=== PATIENT | female | born 2000 ===

== ENCOUNTER 2025-01-17 02:44 | Inpatient (IN) ==
[2025-01-17] MEDS ORDERED: LIDOCAINE 1% LOCAL 20 ML VIAL INFIL PRN (04:23)
[2025-01-17] MEDS ORDERED: ACETAMINOPHEN 325 MG TAB PO PRN (04:23)
[2025-01-17] MEDS ORDERED: CALCIUM CARBONATE 500 MG CHEWABLE TAB PO PRN (04:23)
--- NOTE | 2025-01-17 04:48 | History & Physical Report ---
Date of Service January 17, 2025 Assessment & Plan (1) Amniotic fluid leaking: Plan: SPROM at 36 4/7 weeks at 0100 GBS-negative epidural when requested will start pitocin for augmentation anticipate vaginal Admission and Anticipated Discharge Date Admission Date: January 17, 2025 History of Present Illness Primary Care Provider: NO PCP Patient is a 24 yo female EDC [birth year] who presents with SPROM at 36 4/7 weeks at 0100. no ctn yet. GBS is negative. pregnany otherwise uncomplicated. Allergies Allergy/AdvReac Type Severity Reaction Status Date / Time amoxicillin [From Augmentin] Allergy Intermediate Rash Verified 01/13/25 09:58 clavulanic acid Allergy Intermediate Rash Verified 01/13/25 09:58 [From Augmentin] Home Medications Medication Instructions Recorded Confirmed Type PNV no.[id number] PO 08/20/24 01/13/25 History [ Gummies] Patient History Medical History Anxiety Varicella vaccination Surgical History S/P wisdom tooth extraction S/P tonsillectomy Family History Grandmother (Paternal) Breast cancer Mother No problems noted. Father Hypertension Denies family history of Ovarian cancer Colorectal cancer Social History Smoking Status: Never smoker Second Hand Exposure: No; Do You Dip or Chew Tobacco: No; Tobacco Cessation Education Requested by Patient: No Hx Alcohol Use: No Hx Substance Use: No Preferred Language: Czech Absence Management Consultant Required: No Beliefs That Will Affect Care: None marital status: Single marital status details: Josette Carver (25) [phone] Current Living Situation: Significant Other Current Living Situation Comment: lives alone,dog current occupational status: employed current occupation: [employer] former Other Information That Helps Us Care for You: No Feels Safe at Home: Yes Safety Concerns: Feels Safe At This Time Assistive Devices: Contacts and Glasses Review of Systems All systems reviewed & are unremarkable except as noted in HPI & below Physical Exam Constitutional: WD/WN, vitals as above Psychiatric: A+Ox3, euthymic affect Genitourinary: OB Exam Abdomen: + vertex (confirmed by ultrasound) and + irregular contractions Manual OB Exam: + cervical dilation 1 cm, + cervical effacement 50%, + station -2 and + amniotic fluid clear (grossly ruptured) and nitrazine positive OB Exam Monitor Tracing: + external FHT monitor used, + external uterine monitor used, + category I and + normal FHT variability Results & Data Vital Signs (Past 12 Hours) Vital Signs Temp Pulse Resp BP 01/17/25 03:38 98.2 F 18 01/17/25 03:13 100 H 139/87 01/17/25 03:11 18 01/17/25 03:11 98.2 F 18 Code Status & VTE Plan VTE Prophylaxis Plan VTE Prophylaxis will be ordered: No Coding Level of Care Code 33211 INT INP/OBS CARE 1/40MIN Diagnoses Amniotic fluid leaking O42.90
[2025-01-17] MEDS: LACTATED RINGER'S 1,000 ML IV PRN (04:58)
[2025-01-17 04:59] LABS: Hematocrit (blood only) 37.6 % (37.0-47.0); Hemoglobin 12.8 g/dl (12.0-16.0); Mean Corpuscular Volume 88.3 fL (80.0-100.0); Mean Platelet Volume 11.6 fL (9.4-12.4); Platelet Count 203 K/uL (130-400); RDW Coefficient of Variation 12.5 % (11.5-14.5); RDW Standard Deviation 39.8 fL (36.4-46.3); Red Blood Count 4.26 M/uL (4.20-5.40); White Blood Count 7.66 K/ul (4.8-10.8)
[2025-01-17] MEDS: OXYTOCIN 30 UNITS/NSS 30 UNITS/500 ML BAG IV PRN ×2 (05:05→22:13)
[2025-01-17] MEDS: BETAMETH SOD PHOS/ACETATE IA 6 MG/ML IM STA (05:49)
--- NOTE | 2025-01-17 15:24 | Anesthesiology Consultation ---
Date of Service January 17, 2025 Assessment & Plan Chart Review Chart Review: Acceptable Risk for Labor Epidural Consults Requested none ASA ASA2 Proposed Anesthesia Anesthesia Type: Labor Epidural Risk / Benefits Reviewed With: PT / POA / Parent / Guardian, Accepts Plan and Informed Consent Obtained History Height/Weight Height: 5 ft 1 in Weight: 68.946 kg Allergies Allergy/AdvReac Type Severity Reaction Status Date / Time amoxicillin [From Augmentin] Allergy Intermediate Rash Verified 01/13/25 09:58 clavulanic acid Allergy Intermediate Rash Verified 01/13/25 09:58 [From Augmentin] Medications Home Medications Medication Instructions Recorded Confirmed Last Taken PNV no.[id number] PO 08/20/24 01/13/25 Unknown [ Gummies] Active Medications Generic Name Dose Route Start Last Admin Trade Name Freq PRN Reason Stop Dose Admin Lactated Ringer's 1,000 mls @ 125 mls/hr 01/17/25 04:23 01/17/25 15:22 Lr IV 01/18/25 04:22 125 mls/hr .Q8H PRN Infusion L&D Protocol Protocol Oxytocin 30 units in 500 mls @ 11 mls/hr 01/17/25 04:23 01/17/25 13:05 Pitocin 30 Units/Nss IV 01/19/25 04:22 0.66 units/hr .Q24H PRN 11 mls/hr Labor Induction/Augmentation Titration Protocol 0.66 UNITS/HR NPO Date Last Intake of Fluids: 01/17/25 Time Last Intake of Fluids: 12:00 Date Last Intake of Solids: 01/17/25 Time Last Intake of Solids: 09:30 Past Medical History Medical History Anxiety Varicella vaccination Exercise / Class Metabolic Activity II 4-5 Yardwork/Stairs/Walk up hill Past Family History Family History Grandmother (Paternal) Breast cancer great GM Mother No problems noted. Father Hypertension Denies family history of Ovarian cancer Colorectal cancer Past Surgical History Surgical History S/P wisdom tooth extraction S/P tonsillectomy Past Anesthesia History No Hx of Anesthesia Complications and No Family Hx of Anesthesia Complications History of PONV No Hx of PONV and No Hx of Motion Sickness Social History Smoking Status: Never smoker Do You Dip or Chew Tobacco: No Hx Alcohol Use: No Hx Substance Use: No substance use type: does not use Physical Exam Vital Signs Last Vital Signs Temp 36.6 C 01/17/25 13:04 Pulse 90 01/17/25 14:12 Resp 18 01/17/25 15:00 BP 141/83 H 01/17/25 14:12 ENMT Mouth: no TMJ abnormality Thyromental Distance: > or= 3.5 Finger Breadths Mallampati Class: II Neck normal visual inspection and trachea midline; neck extension not limited Respiratory normal respiratory effort Auscultation: lungs clear to auscultation bilaterally Cardiovascular Rate/Rhythm: regular rate and regular rhythm Heart Sounds: no murmur Musculoskeletal Spine: normal cervical ROM Extremities: full ROM of extremities Neurologic moves all extremities Psychiatric Orientation: alert and oriented x 3 Testing Laboratory Results 01/17/25 04:39
[2025-01-17] MEDS: LIDOCAINE 2%/EPINEPHRINE 1:200,000 20 ML PF ONE (15:37)
[2025-01-17] MEDS: fentANYL 2 MCG/ML BUPIVacaine 0.125%-NSS 100ML BAG ONE (15:37)
[2025-01-17] MEDS: fentaNYL citrate PF 100 MCG/2 ML VIAL ONE (15:41)
[2025-01-17] MEDS: BUPIVACAINE 0.25% PF 30 ML VIAL ONE (15:42)
[2025-01-17] MEDS ORDERED: BUPIVACAINE 0.25% PF 30 ML VIAL EPI PRN (15:47)
[2025-01-17] MEDS ORDERED: LIDOCAINE 2% MPF LOCAL 5 ML VIAL EPI PRN (15:47)
[2025-01-17] MEDS ORDERED: NALOXONE HCL 1 MG in SODIUM CHLORIDE 0.9% 1,000 ML IV PRN (15:47)
[2025-01-17] MEDS ORDERED: ONDANSETRON INJ 2 MG/ML 2 ML VIAL IV PRN (15:47)
[2025-01-17] MEDS ORDERED: PROMETHAZINE 6.25 MG/50.25 ML BAG IV PRN (15:47)
[2025-01-17] MEDS ORDERED: diphenhydrAMINE 50 MG/ML VIAL IV PRN (15:47)
[2025-01-17] MEDS ORDERED: NALBUPHINE HCL INJ 10 MG/ML AMP IV PRN (15:47)
[2025-01-17] MEDS ORDERED: fentaNYL citrate PF 100 MCG/2 ML VIAL EPI PRN (15:47)
[2025-01-17] MEDS ORDERED: NALOXONE HCL 0.4 MG/1 ML VIAL/CARP IV PRN (15:47)
[2025-01-17] MEDS ORDERED: SODIUM CHLORIDE 0.9% PF INJ 10 ML VIAL EPI PRN (15:47)
[2025-01-17] MEDS ORDERED: ROPIVACAINE 0.5% PF 5 MG/ML 20 ML VIAL EPI PRN (15:47)
[2025-01-17] MEDS ORDERED: fentANYL 2 MCG/ML BUPIVacaine 0.125%-NSS 100ML BAG EPI PRN (15:47)
[2025-01-17] MEDS ORDERED: METOCLOPRAMIDE HCL 20 MG in SODIUM CHLORIDE 0.9% 50 ML IV PRN (15:47)
[2025-01-17] MEDS ORDERED: ePHEDrine sulfate 50 MG/ML AMP IV PRN (15:47)
[2025-01-17] MEDS: ePHEDrine sulfate 50 MG/ML AMP ONE (17:18)
[2025-01-17] MEDS: LIDOCAINE 2%/EPINEPHRINE 1:200,000 20 ML PF EPI STA (17:18)
[2025-01-17] MEDS: fentaNYL citrate PF 100 MCG/2 ML VIAL EPI STA (17:18)
[2025-01-17] MEDS: SODIUM CHLORIDE 0.9% PF INJ 10 ML VIAL ONE (17:18)
[2025-01-17] MEDS: BUPIVACAINE 0.25% PF 30 ML VIAL EPI STA (17:18)
[2025-01-17] MEDS: SODIUM CHLORIDE 0.9% PF INJ 10 ML VIAL EPI STA (17:18)
--- NOTE | 2025-01-17 20:10 | Labor Progress Brief Note ---
Date of Service January 17, 2025 Subjective Pt began to feel increased pressure, FHT Cat 1 [place] Q 2 Cervix complete/100%/+2 Starting to push. Assessment & Plan Admission and Anticipated Discharge Date Admission Date: January 17, 2025 Results & Data Vital Signs (Past 12 Hours) Vital Signs Temp Pulse Resp BP Pulse Ox 01/17/25 20:03 121 H 100 01/17/25 19:59 111 H 150/90 H 01/17/25 19:58 128 H 100 01/17/25 19:53 131 H 100 01/17/25 19:48 108 H 99 01/17/25 19:44 106 H 142/88 H 01/17/25 19:43 100 H 100 01/17/25 19:38 101 H 100 01/17/25 19:33 95 H 100 01/17/25 19:29 105 H 131/83 01/17/25 19:28 104 H 99 01/17/25 19:23 105 H 100 01/17/25 19:18 100 H 100 01/17/25 19:15 36.7 C 01/17/25 19:15 111 H 146/89 H 01/17/25 19:13 106 H 100 01/17/25 19:08 101 H 100 01/17/25 19:03 99 01/17/25 19:03 107 H 01/17/25 19:03 111 H 93 01/17/25 18:59 90 130/70 01/17/25 18:58 93 H 98 01/17/25 18:53 97 H 99 01/17/25 18:48 99 H 99 01/17/25 18:44 85 125/66 01/17/25 18:43 90 100 01/17/25 18:38 97 H 100 01/17/25 18:33 102 H 99 01/17/25 18:30 18 01/17/25 18:30 18 01/17/25 18:29 96 H 124/73 01/17/25 18:28 94 H 99 01/17/25 18:23 93 H 98 01/17/25 18:18 109 H 100 01/17/25 18:14 107 H 132/71 01/17/25 18:13 109 H 100 01/17/25 18:08 104 H 100 01/17/25 18:03 102 H 99 01/17/25 17:59 112 H 128/73 01/17/25 17:58 114 H 100 01/17/25 17:53 106 H 100 01/17/25 17:48 115 H 99 01/17/25 17:45 100 H 132/78 01/17/25 17:43 106 H 100 01/17/25 17:38 100 H 99 01/17/25 17:33 103 H 100 01/17/25 17:30 18 01/17/25 17:30 18 01/17/25 17:29 99 H 129/73 01/17/25 17:28 101 H 99 01/17/25 17:23 99 H 100 01/17/25 17:18 97 H 100 01/17/25 17:13 99 H 127/73 99 01/17/25 17:08 99 H 100 01/17/25 17:03 105 H 99 01/17/25 17:00 18 01/17/25 17:00 18 01/17/25 16:59 103 H 125/75 01/17/25 16:58 103 H 99 01/17/25 16:53 107 H 100 01/17/25 16:48 103 H 100 01/17/25 16:47 92 H 121/77 01/17/25 16:45 93 H 115/76 01/17/25 16:43 85 98 01/17/25 16:38 85 97 01/17/25 16:33 74 100 01/17/25 16:30 18 01/17/25 16:30 18 01/17/25 16:29 77 123/65 01/17/25 16:28 75 100 01/17/25 16:23 84 99 01/17/25 16:18 78 100 01/17/25 16:15 79 121/67 01/17/25 16:13 78 100 01/17/25 16:08 79 100 01/17/25 16:03 74 100 01/17/25 16:00 20 01/17/25 16:00 36.8 C 20 01/17/25 15:58 87 99 01/17/25 15:57 18 01/17/25 15:57 18 01/17/25 15:56 80 127/67 01/17/25 15:53 86 99 01/17/25 15:52 18 01/17/25 15:52 18 01/17/25 15:49 84 124/64 01/17/25 15:48 90 100 01/17/25 15:47 87 20 123/61 01/17/25 15:45 89 130/63 01/17/25 15:44 82 129/62 01/17/25 15:43 100 01/17/25 15:43 85 01/17/25 15:43 80 125/62 01/17/25 15:41 88 135/83 01/17/25 15:39 88 137/84 01/17/25 15:38 85 99 01/17/25 15:37 91 H 132/77 01/17/25 15:33 115 H 100 01/17/25 15:30 18 01/17/25 15:30 18 01/17/25 15:28 85 97 01/17/25 15:00 18 01/17/25 15:00 18 01/17/25 14:12 90 141/83 H 01/17/25 13:30 16 01/17/25 13:30 16 01/17/25 13:04 36.6 C 90 20 134/85 01/17/25 12:30 16 01/17/25 12:30 16 01/17/25 12:00 18 01/17/25 12:00 18 01/17/25 11:30 18 01/17/25 11:30 18 01/17/25 11:01 91 H 127/70 01/17/25 11:00 20 01/17/25 11:00 36.8 C 20 01/17/25 10:30 18 01/17/25 10:30 18 01/17/25 10:00 18 01/17/25 10:00 18 01/17/25 09:53 85 130/73 01/17/25 08:13 20 01/17/25 08:13 20 Coding Level of Care Code None
--- NOTE | 2025-01-17 20:59 | Labor Progress Brief Note ---
Date of Service January 17, 2025 Subjective FHT Cat 1 toco Q 2 3+ station, continue pushing. Assessment & Plan Admission and Anticipated Discharge Date Admission Date: January 17, 2025 Results & Data Vital Signs (Past 12 Hours) Vital Signs Temp Pulse Resp BP Pulse Ox 01/17/25 20:53 132 H 97 01/17/25 20:48 101 H 98 01/17/25 20:44 102 H 138/58 L 01/17/25 20:43 105 H 99 01/17/25 20:41 114 H 93 01/17/25 20:38 78 99 01/17/25 20:33 104 H 99 01/17/25 20:29 90 138/72 01/17/25 20:28 95 H 99 01/17/25 20:23 101 H 100 01/17/25 20:18 100 01/17/25 20:18 106 H 01/17/25 20:18 104 H 92 01/17/25 20:13 114 H 98 01/17/25 20:08 101 H 100 01/17/25 20:03 121 H 100 01/17/25 19:59 111 H 150/90 H 01/17/25 19:58 128 H 100 01/17/25 19:53 131 H 100 01/17/25 19:48 108 H 99 01/17/25 19:44 106 H 142/88 H 01/17/25 19:43 100 H 100 01/17/25 19:38 101 H 100 01/17/25 19:33 95 H 100 01/17/25 19:29 105 H 131/83 01/17/25 19:28 104 H 99 01/17/25 19:23 105 H 100 01/17/25 19:18 100 H 100 01/17/25 19:15 36.7 C 01/17/25 19:15 111 H 146/89 H 01/17/25 19:13 106 H 100 01/17/25 19:08 101 H 100 01/17/25 19:03 99 01/17/25 19:03 107 H 01/17/25 19:03 111 H 93 01/17/25 18:59 90 130/70 01/17/25 18:58 93 H 98 01/17/25 18:53 97 H 99 01/17/25 18:48 99 H 99 01/17/25 18:44 85 125/66 01/17/25 18:43 90 100 01/17/25 18:38 97 H 100 01/17/25 18:33 102 H 99 01/17/25 18:30 18 01/17/25 18:30 18 01/17/25 18:29 96 H 124/73 01/17/25 18:28 94 H 99 01/17/25 18:23 93 H 98 01/17/25 18:18 109 H 100 01/17/25 18:14 107 H 132/71 01/17/25 18:13 109 H 100 01/17/25 18:08 104 H 100 01/17/25 18:03 102 H 99 01/17/25 17:59 112 H 128/73 01/17/25 17:58 114 H 100 01/17/25 17:53 106 H 100 01/17/25 17:48 115 H 99 01/17/25 17:45 100 H 132/78 01/17/25 17:43 106 H 100 01/17/25 17:38 100 H 99 01/17/25 17:33 103 H 100 01/17/25 17:30 18 01/17/25 17:30 18 01/17/25 17:29 99 H 129/73 01/17/25 17:28 101 H 99 01/17/25 17:23 99 H 100 01/17/25 17:18 97 H 100 01/17/25 17:13 99 H 127/73 99 01/17/25 17:08 99 H 100 01/17/25 17:03 105 H 99 01/17/25 17:00 18 01/17/25 17:00 18 01/17/25 16:59 103 H 125/75 01/17/25 16:58 103 H 99 01/17/25 16:53 107 H 100 01/17/25 16:48 103 H 100 01/17/25 16:47 92 H 121/77 01/17/25 16:45 93 H 115/76 01/17/25 16:43 85 98 01/17/25 16:38 85 97 01/17/25 16:33 74 100 01/17/25 16:30 18 01/17/25 16:30 18 01/17/25 16:29 77 123/65 01/17/25 16:28 75 100 01/17/25 16:23 84 99 01/17/25 16:18 78 100 01/17/25 16:15 79 121/67 01/17/25 16:13 78 100 01/17/25 16:08 79 100 01/17/25 16:03 74 100 01/17/25 16:00 20 01/17/25 16:00 36.8 C 20 01/17/25 15:58 87 99 01/17/25 15:57 18 01/17/25 15:57 18 01/17/25 15:56 80 127/67 01/17/25 15:53 86 99 01/17/25 15:52 18 01/17/25 15:52 18 01/17/25 15:49 84 124/64 01/17/25 15:48 90 100 01/17/25 15:47 87 20 123/61 01/17/25 15:45 89 130/63 01/17/25 15:44 82 129/62 01/17/25 15:43 100 01/17/25 15:43 85 01/17/25 15:43 80 125/62 01/17/25 15:41 88 135/83 01/17/25 15:39 88 137/84 01/17/25 15:38 85 99 01/17/25 15:37 91 H 132/77 01/17/25 15:33 115 H 100 01/17/25 15:30 18 01/17/25 15:30 18 01/17/25 15:28 85 97 01/17/25 15:00 18 01/17/25 15:00 18 01/17/25 14:12 90 141/83 H 01/17/25 13:30 16 01/17/25 13:30 16 01/17/25 13:04 36.6 C 90 20 134/85 01/17/25 12:30 16 01/17/25 12:30 16 01/17/25 12:00 18 01/17/25 12:00 18 01/17/25 11:30 18 01/17/25 11:30 18 01/17/25 11:01 91 H 127/70 01/17/25 11:00 20 01/17/25 11:00 36.8 C 20 01/17/25 10:30 18 01/17/25 10:30 18 01/17/25 10:00 18 01/17/25 10:00 18 01/17/25 09:53 85 130/73 Coding Level of Care Code None
--- NOTE | 2025-01-17 22:05 | Delivery Summary ---
Vaginal Delivery Summary Date of Service January 17, 2025 Vaginal Delivery Summary and 3rd Degree LAC Vaginal Delivery Summary: Pre-delivery diagnoses: 24yo @ 36 4/7, PPROM Post-delivery diagnoses: same Procedure: spontaneous vaginal delivery Surgeon: Mila Grullon DO Complications: none Findings: Viable male . Apgars: 8/9 . Weight pending, please see nursery records Estimated QBL: 227cc Description of delivery: The patient progressed to complete with epidural anesthesia. She then began to push. She spontaneously vaginally delivered a viable from the cephalic presentation. The head delivered in SHIVANI position. The anterior shoulder delivered, followed by the posterior shoulder, followed by the body. The baby was placed on mother's abdomen and a spontaneous cry was heard. Delayed cord clamping was employed, and the cord was doubly clamped and cut. Cord blood was obtained. The placenta was delivered spontaneously intact with a 3-vessel cord. The uterus and vagina were swept of clots and debris. IV pitocin was given. The uterus became firm. The cervix, vagina, and perineum were inspected and laceration noted - it did not extend through the anal sphincter muscle, however since the muscle was from the tissue around it, this was supported with a 3-0 Chromic [id number] stitch. The remaining laceration was repaired with 3-0 Vicryl in standard fashion. Excellent hemostasis was observed. The mother and baby are recovering in stable and good condition in the room. Sponge, needle and instrument counts were correct x 2. Mila Grullon DO [facility] Vaginal Delivery Charge Vaginal Delivery Codes: 88143 global code for the antepartum, delivery, and post- Delivery Type Details: and 3rd Degree LAC
[2025-01-17] MEDS ORDERED: OXYTOCIN 30 UNITS/NSS 30 UNITS/500 ML BAG IV PRN (22:21)
[2025-01-17] MEDS ORDERED: HYDROCORTISONE ACETATE 25 MG SUPP PR PRN (22:21)
[2025-01-18] MEDS: BENZOCAINE 20% SPRY 85 APPLN/85 GM CAN EXT PRN (00:09)
[2025-01-18] MEDS: IBUPROFEN 600 MG TAB PO PRN (00:10)
[2025-01-18] MEDS: ACETAMINOPHEN 325 MG TAB PO PRN (00:10)
[2025-01-18] MEDS: DIPHTHER/TETAN/PERTUS Vaccine (Tdap, Adol/Adult) 0.5mL IM ONE (00:25)
[2025-01-18 06:54] LABS: Hematocrit (blood only) 33.1 % (37.0-47.0); Hemoglobin 11.1 g/dl (12.0-16.0)
[2025-01-18] MEDS: PRENATAL VITAMIN 1 TAB PO SCH (07:48)
[2025-01-18] MEDS: DOCUSATE SODIUM 100 MG CAP PO SCH (07:48)
--- NOTE | 2025-01-18 08:06 | Anesthesia Procedure Note ---
Date of Service January 18, 2025 Anesthesia Post Epidural Note Vital Signs Vital Signs: Temp Pulse Resp BP Pulse Ox O2 Del Method 97.9 F 85 16 134/83 97 Room Air 01/18/25 03:00 01/18/25 03:00 01/18/25 03:00 01/18/25 03:00 01/17/25 23:23 01/18/25 03:00 Pain Intensity Back: Pain Intensity: 4 Notes Mental Status: alert / awake / arousable and participated in evaluation Nausea / Vomiting: adequately controlled Pain: adequately controlled Airway Patency, RR, SpO2: stable & adequate BP & HR: stable & adequate Hydration State: stable & adequate Neuraxial Anesthesia: was administered and sensory block is resolving Anesthetic Complications: no major complications apparent and Pt Satisfied with anesthetic care Epidural: Removed without complications and With tip intact
--- NOTE | 2025-01-18 08:06 | Obstetrical Progress Note ---
Date of Service January 18, 2025 Assessment & Plan (1) Supervision of normal first : PPD#1 doing well. Bottle-feeding. Continue routine care. Subjective Ambulation: ambulating normally Voiding: no voiding problems Diet Tolerance:: regular diet Lochia:: Moderate Review of Systems All systems reviewed & are unremarkable except as noted in HPI & below Physical Exam Constitutional WD/WN, vitals as above no acute distress Respiratory normal respiratory effort Cardiovascular Rate/Rhythm: regular rate and regular rhythm Gastrointestinal (Abdomen) Inspection/Auscultation: abdomen normal to inspection; abdomen not distended Percussion/Palpation: abdomen soft Genitourinary OB Exam Abdomen: + fundal height Fundus: + firm; not tender Results & Data Vital Signs (Past 12 Hours) Vital Signs Temp Pulse Pulse Resp BP BP Pulse Ox 01/18/25 03:00 36.6 C 85 16 134/83 01/18/25 00:25 36.7 C 88 16 144/91 H 01/18/25 00:00 36.6 C 20 01/17/25 23:58 86 135/79 01/17/25 23:43 99 H 132/79 01/17/25 23:30 18 01/17/25 23:29 96 H 127/81 01/17/25 23:23 90 97 01/17/25 23:18 92 H 97 01/17/25 23:14 93 H 133/69 01/17/25 23:13 85 97 01/17/25 23:08 94 H 96 01/17/25 23:03 102 H 96 01/17/25 23:00 36.4 C L 20 01/17/25 22:59 98 H 136/79 01/17/25 22:58 97 H 100 01/17/25 22:53 101 H 98 01/17/25 22:48 98 H 97 01/17/25 22:45 18 01/17/25 22:44 102 H 134/84 01/17/25 22:43 99 H 96 01/17/25 22:38 103 H 98 01/17/25 22:33 100 H 97 01/17/25 22:30 18 01/17/25 22:28 97 H 125/61 96 01/17/25 22:23 100 H 97 01/17/25 22:18 93 H 97 01/17/25 22:15 20 01/17/25 22:13 98 H 127/63 96 01/17/25 22:08 100 H 98 01/17/25 22:03 99 H 96 01/17/25 21:59 104 H 125/64 01/17/25 21:58 97 H 97 01/17/25 21:53 104 H 98 01/17/25 21:48 113 H 93 01/17/25 21:43 117 H 98 01/17/25 21:38 132 H 96 01/17/25 21:36 115 H 88 L 01/17/25 21:33 99 H 93 01/17/25 21:30 107 H 86 L 01/17/25 21:28 99 H 80 L 01/17/25 21:25 103 H 93 01/17/25 21:23 117 H 98 01/17/25 21:18 87 97 01/17/25 21:14 96 H 133/60 01/17/25 21:13 126 H 98 01/17/25 21:08 122 H 98 01/17/25 21:03 114 H 98 01/17/25 20:58 118 H 97 01/17/25 20:53 132 H 97 01/17/25 20:48 101 H 98 01/17/25 20:44 102 H 138/58 L 01/17/25 20:43 105 H 99 01/17/25 20:41 114 H 93 01/17/25 20:38 78 99 01/17/25 20:33 104 H 99 01/17/25 20:29 90 138/72 01/17/25 20:28 95 H 99 01/17/25 20:23 101 H 100 01/17/25 20:18 100 01/17/25 20:18 106 H 01/17/25 20:18 104 H 92 01/17/25 20:13 114 H 98 01/17/25 20:08 101 H 100 O2 Del Method 01/18/25 03:00 Room Air 01/18/25 00:25 Room Air 01/18/25 00:00 01/17/25 23:58 01/17/25 23:43 01/17/25 23:30 01/17/25 23:29 01/17/25 23:23 01/17/25 23:18 01/17/25 23:14 01/17/25 23:13 01/17/25 23:08 01/17/25 23:03 01/17/25 23:00 01/17/25 22:59 01/17/25 22:58 01/17/25 22:53 01/17/25 22:48 01/17/25 22:45 01/17/25 22:44 01/17/25 22:43 01/17/25 22:38 01/17/25 22:33 01/17/25 22:30 01/17/25 22:28 01/17/25 22:23 01/17/25 22:18 01/17/25 22:15 01/17/25 22:13 01/17/25 22:08 01/17/25 22:03 01/17/25 21:59 01/17/25 21:58 01/17/25 21:53 01/17/25 21:48 01/17/25 21:43 01/17/25 21:38 01/17/25 21:36 01/17/25 21:33 01/17/25 21:30 01/17/25 21:28 01/17/25 21:25 01/17/25 21:23 01/17/25 21:18 01/17/25 21:14 01/17/25 21:13 01/17/25 21:08 01/17/25 21:03 01/17/25 20:58 01/17/25 20:53 01/17/25 20:48 01/17/25 20:44 01/17/25 20:43 01/17/25 20:41 01/17/25 20:38 01/17/25 20:33 01/17/25 20:29 01/17/25 20:28 01/17/25 20:23 01/17/25 20:18 01/17/25 20:18 01/17/25 20:18 01/17/25 20:13 01/17/25 20:08
[2025-01-18] MEDS: oxyCODONE/ACETAMINOPHEN 5mg/325mg TAB PO PRN (08:29)
[2025-01-18] MEDS: MEASLES, MUMPS & RUBELLA VIRUS VACCINE (MMR) 0.5ML VIAL SQ ONE (13:14)
[2025-01-18] MEDS: bisacodyL 5 MG TABEC PO SCH (20:49)
--- NOTE | 2025-01-19 07:30 | Obstetrical Progress Note ---
Date of Service January 19, 2025 Assessment & Plan (1) Supervision of normal first : PPD#2 doing well. DC home, instructions reviewed. Subjective Ambulation: ambulating normally Voiding: no voiding problems Diet Tolerance:: regular diet Lochia:: Moderate Review of Systems All systems reviewed & are unremarkable except as noted in HPI & below Physical Exam Constitutional WD/WN, vitals as above no acute distress Respiratory normal respiratory effort Cardiovascular Rate/Rhythm: regular rate and regular rhythm Gastrointestinal (Abdomen) Inspection/Auscultation: abdomen normal to inspection; abdomen not distended Percussion/Palpation: abdomen soft Genitourinary OB Exam Abdomen: + fundal height Fundus: + firm; not tender Results & Data Vital Signs (Past 12 Hours) Vital Signs Temp Pulse Resp BP Pulse Ox O2 Del Method 01/19/25 00:00 36.8 C 85 18 122/77 99 Room Air
[2025-01-19 09:01] VITALS: BP 141/84; PULSE 74; RESP 16; TEMP 97.9; O2SAT 100
[2025-01-19] MEDS ORDERED: bisacodyL 10 MG SUPP PR PRN (22:21)
== END 2025-01-19 13:00 | disposition home or self-care (01) | DRG 768 ==
LOC: OPB 02:44 → 4S1 02:46 → 4E2 01-18 00:26